=== PATIENT | male | born 1960 | race Caucasian/White ===

== ENCOUNTER 2016-12-12 09:25 | Day surgery (SDC) | payer OTHER ==
--- NOTE | 2016-11-13 10:36 | PREOP ---
DATE OF OPERATION: Undetermined. DATE OF DICTATION: 11/01/2016 REASON FOR ADMISSION: Soft tissue mass, right chest. BRIEF HISTORY: This is a 55-year-old gentleman who has a painful soft tissue mass just along the rib cage on the patient's right side. The patient underwent an ultrasound of this mass and it was nonspecific; however, a cyst could not be ruled out. The mass, on ultrasound, was approximately 7 mm in size. Due to the pain, the patient wished to have this removed. PAST MEDICAL HISTORY: Significant for peptic ulcer disease, hypertension, coronary artery disease, hypercholesterolemia, diabetes, history of blood clots and a pulmonary embolism. He is on lifelong Coumadin. He has a history of thyroid issues. PAST SURGICAL HISTORY: Open repair of ventral hernia. He has an excision of a cyst in 2011 and knee surgery. ALLERGIES: None. SOCIAL HISTORY: The patient is a retired program officer. He does not smoke nor drink. MEDICATIONS: Metformin, atenolol, diltiazem, AcipHex and Coumadin. PHYSICAL EXAMINATION: Lungs: Clear. Heart: Regular rhythm. Abdomen: Soft, nontender, nondistended. Patient lost approximately 90 pounds. The patient has a soft tissue mass along the right rib cage. It is noted best in the sitting position and just at the crease of the chest fat and his abdominal fat. The mass is approximately 1 cm in size and well demarcated. It is located between a chronic skin psoriatic patch posteriorly and a skin tag anteriorly. IMPRESSION/PLAN: Soft tissue mass, right chest. Given the fact that it caused him discomfort, will plan for excision in the operating room. The patient, his and myself had approximately an hour conversation regarding the pros and cons of stopping the Coumadin for this operation and doing a Lovenox bridge versus doing the operation on Coumadin. I think the risks for this kind of surgery is higher if we put him on a Lovenox bridge, and therefore, the patient and have opted to proceed with doing the surgery on Coumadin, knowing the effects of persistent bleeding, possibly requiring transfusion and even reversal with FFP. They understand these risks and still want to proceed. WIL BAIRES M.D. [id number] CC: Charles Nova MD
[2016-12-10 13:16] VITALS: BMI 33.7
[2016-12-12] MEDS ORDERED: LIDOCAINE HCL 1%, 10 MG/ML (20ML VIAL) ONE (10:36)
[2016-12-12 11:17] LABS: INR 1.88 (0.82-1.09); PROTHROMBIN TIME (PATIENT) 20.8 SEC (10.2-13.0)
[2016-12-12] MEDS ORDERED: LIDOCAINE 1%-EPI 1:100,000 30 ML MDV IJ ONE ×2 (11:26→12:19)
[2016-12-12] MEDS ORDERED: PROPOFOL 20 ML ONE ×2 (11:34)
[2016-12-12] MEDS ORDERED: MIDAZOLAM HCL 2 MG/2 ML SINGLE DOSE VIAL ONE (11:34)
[2016-12-12] MEDS ORDERED: ceFAZolin SODIUM 1 GM VIAL ONE (12:34)
[2016-12-12] MEDS ORDERED: KETOROLAC TROMETHAMINE 30 MG/1 ML VIAL ONE (12:41)
[2016-12-12] MEDS ORDERED: ONDANSETRON 4 MG/2 ML VIAL ONE (12:41)
--- NOTE | 2016-12-12 14:40 | PN ---
Progress Note (short form) - Note Progress Note: 56 year old male has AF, with bradycardia that seems to be exacerbated post op. Pt with occational runs of HR dropping into 20's. Pt says he feels fine. Bp stable through out Rhythm strip captured and 12 lead obtained. Spoke with Dr Pineda pt microbiology technologist. He recommended, holding Digoxin, holding atenolol for the evening and call him in the AM he was ok with patient being discharged home
[2016-12-12 16:34] VITALS: BP 123/73; PULSE 71; TEMP 97.9
--- NOTE | 2016-12-13 09:42 | OP ---
DATE OF OPERATION: 12/12/2016 PREOPERATIVE DIAGNOSIS: Soft tissue mass right chest, suspect lipoma. POSTOPERATIVE DIAGNOSIS: Soft tissue mass right chest, suspect lipoma, consistent with lipoma. PROCEDURE: Excision of right chest soft tissue mass with 4 cm wound closure. SURGEON: Arnoldo Fox MD COIN MACHINE ASSEMBLER: None. ANESTHESIA: Neyda Quijano MD; MAC, 1% lidocaine without epinephrine, approximately 5 mL. ESTIMATED BLOOD LOSS: Minimal. SPECIMENS: Soft tissue mass, lipoma. INDICATIONS FOR PROCEDURE: This is a gentleman with a soft tissue mass overlying the right chest that is causing him discomfort. He wished to have this removed. DESCRIPTION OF PROCEDURE: Patient identified and appropriately positioned on the operating table. After IV sedation, the area was prepped and draped in the usual sterile fashion with ChloraPrep. Then, 1% lidocaine without epinephrine was used for anesthesia, approximately 5 mL. A 4-cm transverse incision overlying the mass was mass was made, deep to the subcutaneous tissue. The mass was sharply excised. Hemostasis was achieved with electrocautery as needed. The deep fat and dermis were reapproximated with inverted 3-0 Vicryl suture. The skin was closed with 4-0 Biosyn followed by Dermabond. Length of incision was 4 cm. At the conclusion of the case, sponge and needle counts were correct. ATTESTATION: Brief operative note hand written on the preprinted form. The METHODOLOGIST was cleared prior to giving any narcotics. Judie BAUTISTA [id number] cc: UDAY Taylor
--- NOTE | 2016-12-13 16:46 | EKG ---
Test Reason : Blood Pressure : / mmHG Vent. Rate : 052 BPM Atrial Rate : 055 BPM P-R Int : 000 ms QRS Dur : 088 ms QT Int : 432 ms P-R-T Axes : 000 000 -08 degrees QTc Int : 401 ms ATRIAL FIBRILLATION WITH SLOW VENTRICULAR RESPONSE CANNOT RULE OUT INFERIOR INFARCT , AGE UNDETERMINED ANTEROSEPTAL INFARCT , AGE UNDETERMINED NO PREVIOUS ECGS AVAILABLE Confirmed by MD LEHMAN MARJORY ([id number]) on 12/13/2016 4:46:14 PM Referred By: Arnoldo Fox Confirmed By:STARLA LEHMAN MD
--- NOTE | 2016-12-14 10:57 | PATH ---
Surgical Pathology Report Patient Name: JUMA CAMPOS [facility]. Rec. #: [id number] /Age/Gender: 1960 (Age: 56) / M Account: [id number] Location: [facility] AMBUL[facility] Taken: 12/12/2016 Received: 12/12/2016 Reported: 12/14/2016 Physicians: Arnoldo Fox Specimen(s) Received SOFT TISSUE MASS RIGHT CHEST LIPOMA Clinical History Right chest wall mass Final Diagnosis SOFT TISSUE, RIGHT CHEST, EXCISION: LIPOMA. Electronically Signed Marlon Hinson M.D. Gross Description Received in formalin labeled "soft tissue mass right chest lipoma," is a 3.5 x 2.7 x 1.0 cm portion of yellow, lobulated adipose tissue. Sectioning reveals homogeneous yellow, smooth fat. Spinning Frame Fixer sections are submitted in one cassette. /12/13/2016 [facility]
== END 2016-12-12 15:30 | disposition home or self-care (01) ==
LOC: FASU 09:25
PROVIDERS: ATTEND Surgery
PROC: 0HB5XZX Excision of Chest Skin, External Approach, Diagnostic (ICD-10-PCS; principal; 2016-12-12 12:38)
DX: D21.3 Benign neoplasm of connective and other soft tissue of thorax (principal)
CPT/HCPCS: 36415; 85610; 88304-TC; 93005; 94760